=== PATIENT | male | born 1950 | race Caucasian/White ===

== ENCOUNTER 2016-10-22 14:06 | Emergency (ER) | payer OTHER ==
[~2016-10-22] VITALS: Ht 180.3 cm; Wt 75.0 kg
[~2016-10-22 14:06] MED LIST: CLON1 PO; LEVA750T PO; OMEP20TA PO; PERC10TA27 PO; VITA100T2 PO; WALKER WHEELS/F1 MIS
[2016-10-22 14:08] VITALS: BP 136/78; PULSE 94; RESP 20; TEMP 99.7; O2SAT 98
--- NOTE | 2016-10-22 14:44 | RADRPT ---
EXAM DATE/TIME: 10/22/2016 14:25 [facility] COMPARISON: CHEST SINGLE AP, January 24, 2016, 16:09. INDICATIONS : Congestion, short of breath, wheezing. MEDICAL HISTORY : Chronic obstructive pulmonary disease. SURGICAL HISTORY : None. ENCOUNTER: Initial ACUITY: 1 day PAIN SCORE: 0/10 LOCATION: Bilateral chest FINDINGS: A single view of the chest demonstrates the lungs to be symmetrically aerated without evidence of mas s, infiltrate or effusion. The cardiomediastinal contours are unremarkable. Osseous structures are intact. Marked osteoarthritis of the humeral heads CONCLUSION: Continued hyperexpansion without evidence of infiltrate or mass. Lisandro Alba MD on October 22, 2016 at 14:42 Board Certified Radiologist. This report was verified electronically.
[2016-10-22] MEDS ORDERED: VENTAER INH (15:33)
[2016-10-22] MEDS ORDERED: ZITHTAB PO (15:33)
--- NOTE | 2016-10-22 15:35 | PD ---
HPI Chief Complaint: Cold / Flu Symptoms Time Seen by Provider: 15:27 Travel History International Travel<30 days: No Contact w/Intl Traveler<30days: No Traveled to known affect area: No History of Present Illness HPI Patient comes in complaining of a productive cough ongoing for a week. Patient states he's coughing up yellowish phlegm. Reports subjective fevers. Denies any nausea, vomiting, back pain, chest pain, abdominal pain, headaches, or loss or change in bowel or bladder. Patient continues smoking. Patient denies doing anything for this. Denies anything making it better or worse. Patient also requesting a refill of his Klonopin. States he tried to go to his primary care doctor's office today but they were closed. PFSH Past Medical History Hx Anticoagulant Therapy: No Arthritis: Yes Asthma: No Blood Disorders: No Anxiety: Yes (PANIC ATTACKS) Depression: Yes Heart Rhythm Problems: No Cancer: No Cardiovascular Problems: No High Cholesterol: No Chemotherapy: No Chest Pain: Yes Congestive Heart Failure: No COPD: No Cerebrovascular Accident: No Diabetes: No Diminished Hearing: No Endocrine: No Gastrointestinal Disorders: Yes GERD: Yes Genitourinary: Yes (HESITANCY) Headaches: Yes Hypertension: Yes Immune Disorder: No Implanted Vascular Access Dvce: Yes Musculoskeletal: Yes Neurologic: Yes Psychiatric: Yes Reproductive: No Respiratory: Yes (CURRENT PNEUMONIA) Immunizations Current: No Migraines: Yes Pneumonia: Yes Radiation Therapy: No Sleep Apnea: No Thyroid Disease: No Past Surgical History Abdominal Surgery: No AICD: No Appendectomy: No Arteriovenous Shunt: No Cardiac Surgery: No Cholecystectomy: No Ear Surgery: No Endocrine Surgery: No Eye Surgery: Yes (LEFT EYE SURGERY) Genitourinary Surgery: No Gynecologic Surgery: No Hysterectomy: No Joint Replacement: Yes (RIGHT HAND METAL HARDWARE) Oral Surgery: No Thoracic Surgery: No Other Surgery: Yes Social History Alcohol Use: Yes (VODKA, 4 LOCOS) Tobacco Use: Yes (1 PPD) Substance Use: No Allergies-Medications (Allergen,Severity, Reaction): Coded Allergies: ketorolac (Unverified Adverse Reaction, Severe, UPSET STOMACH/ITCH, ) tramadol (Unverified Adverse Reaction, Severe, UPSET STOMACH/ITCH, 09/22/16 ) Reported Meds & Prescriptions Reported Meds & Active Scripts Active Zithromax Z-Hermes (Azithromycin) 250 Mg Dspk 250 Mg PO DIRECTED 500 MG (2 tabs) day 1, then 1 tab days 2-5. Ventolin Hfa 18 GM Inh (Albuterol Sulfate) 90 Mcg/Act Aer 2 Puff INH Q4-6H PRN Reported Klonopin (Clonazepam) 1 Mg Tab 1 Mg PO BID Review of Systems Except as stated in HPI: all other systems reviewed are Neg Physical Exam Narrative GENERAL: Well-developed, well nourished, in no acute distress, and non-ill appearing. SKIN: Focused skin assessment warm and dry. HEAD: Atraumatic. Normocephalic. EYES: Pupils equal and round. EOMI. No scleral icterus. No injection or drainage. ENT: No nasal bleeding or discharge. Mucous membranes pink and moist. NECK: Trachea midline. Supple. No nuclear rigidity. CARDIOVASCULAR: Regular rate and rhythm. No murmur appreciated. RESPIRATORY: No accessory muscle use. No respiratory distress. Decreased breath sounds throughout. Breath sounds equal bilaterally. MUSCULOSKELETAL: No obvious deformities. No clubbing. No cyanosis. No edema. Full range of motion. NEUROLOGICAL: Awake and alert. No obvious cranial nerve deficits. Motor grossly within normal limits. Normal speech. PSYCHIATRIC: Appropriate mood and affect; insight and judgment normal. Data Data Last Documented VS Vital Signs Date Time Temp Pulse Resp B/P (MAP) Pulse Ox O2 Delivery O2 Flow Rate FiO2 10/22/16 15:39 10/22/16 14:08 99.7 94 20 98 Room Air Orders Orders Chest, Single Ap (10/22/16 14:12) [facility] Medical Decision Making Medical Screen Exam Complete: Yes Emergency Medical Condition: Yes Interpretation(s) Chest x-ray read by the radiologist shows: Continued hyperexpansion without evidence of infiltrate or mass. Differential Diagnosis Pneumonia, bronchitis, COPD exacerbation, pneumothorax, other Narrative Course Patients symptom complex is consistent with bronchitis. The patient is non-ill appearing and is in no respiratory distress and comfortable. The patient moves air well and oxygen saturations are normal. Chest x-ray revealed no evidence of obvious consolidation of infiltrate. There is no clinical evidence to suggest pneumonia at this time. Plan of care and management were discussed with the patient who agreed with plan. The patient was instructed to follow up with their physician and instructed to return if worsens, progressively worsening shortness of breath or difficulty breathing, persistent fever, chest pains or discomfort, inability to keep medication or fluids down with or without vomiting , or as needed. Patient in no obvious distress upon re-evaluation. All pertinent Radiology result(s) discussed with patient. Patient was asked if they wanted to speak to my attending, which the patient did not wish to do at this time. Any questions/ concerns in reference to patient diagnosis/condition discussed and clarified prior to patient's discharge. Reinforced sheer importance of close follow up with patient's primary physician or primary care clinic for reevaluation and refill of his Klonopin. Instructed patient to return to ED immediately, if symptoms return/worsen. Pt showed understanding of above instructions. Further instructions and recommendations were detailed in discharge paperwork. Pt ambulated without difficulty out of ED at discharge. Diagnosis Primary Impression: Bronchitis Patient Instructions: Acute Bronchitis (ED), General Instructions Additional Instructions: Follow-up with your primary care physician next week for reevaluation. Take all medication as prescribed. Return to the emergency department if symptoms get worse. Med/Other Pt SpecificInfo: Prescription(s) given Scripts Azithromycin (Zithromax Z-Hermes) 250 Mg Dspk 250 MG PO DIRECTED for Infection, #1 DSPK 0 Refills 500 MG (2 tabs) day 1, then 1 tab days 2-5. Prov: Noah León MD 10/22/16 Albuterol 18 GM Inh (Ventolin Hfa 18 GM Inh) 90 Mcg/Act Aer 2 PUFF INH Q4-6H Y for COUGH, #1 INHALER 0 Refills Prov: Noah León MD 10/22/16 Disposition: 01 DISCHARGE HOME Condition: Stable Eugenio Holland Oct 22, 2016 15:35
== END 2016-10-22 15:57 | disposition home or self-care (01) ==
LOC: EDTENT 14:06
DX: J40 Bronchitis, not specified as acute or chronic (principal); I10 Essential (primary) hypertension; F17.210 Nicotine dependence, cigarettes, uncomplicated
CPT/HCPCS: 71010; 99284

== ENCOUNTER 2016-10-24 16:59 | Emergency (ER) | payer OTHER ==
[~2016-10-24] VITALS: Ht 180.3 cm; Wt 68.0 kg
[~2016-10-24 16:59] MED LIST changes: -LEVA750T PO; -OMEP20TA PO; -PERC10TA27 PO; +VENTAER INH; -VITA100T2 PO; -WALKER WHEELS/F1 MIS; +ZITHTAB PO
[2016-10-24 17:08] VITALS: BP 121/80; PULSE 90; RESP 16; TEMP 98.4; O2SAT 97
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
[2016-10-24] MEDS: ACETAMINOPHEN 325 MG TAB PO ONE ×2 (17:57→18:00)
[2016-10-24] MEDS ORDERED: TETANUS/DIPHTHERIA TOXOID ADULT 0.5 ML VIAL IM ONE (18:00)
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
[2016-10-24 18:46] VITALS: BP 118/81; PULSE 80; RESP 20; O2SAT 99
[2016-10-24] MEDS ORDERED: AMOX875T PO (19:01)
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
== END 2016-10-24 19:24 | disposition home or self-care (01) ==
LOC: NEPC 16:59
DX: S01.511A Laceration without foreign body of lip, initial encounter (principal); M54.2 Cervicalgia; R51 Headache; R11.2 Nausea with vomiting, unspecified; I10 Essential (primary) hypertension; F17.210 Nicotine dependence, cigarettes, uncomplicated; Z23 Encounter for immunization; W20.8XXA Other cause of strike by thrown, projected or falling object, initial encounter; Y09 Assault by unspecified means; Y92.830 Public park as the place of occurrence of the external cause; Y99.8 Other external cause status
CPT/HCPCS: 12011; 70450; 70486; 72125; 90471; 90714

== ENCOUNTER 2017-02-04 08:24 | Emergency (ER) | payer OTHER ==
[~2017-02-04] VITALS: Ht 180.3 cm; Wt 77.0 kg
[~2017-02-04 08:24] MED LIST changes: +AMOX875T PO; -VENTAER INH; -ZITHTAB PO
[2017-02-04 08:26] VITALS: BP 130/84; PULSE 97; RESP 20; TEMP 98; O2SAT 99
[2017-02-04] MEDS ORDERED: SODIUM CHLORIDE 0.9% FLUSH 10 ML FLUSH IVF PRN (08:45)
--- NOTE | 2017-02-04 08:47 | PD ---
HPI Chief Complaint: Pain: Acute or Chronic Time Seen by Provider: 08:35 Travel History International Travel<30 days: No Contact w/Intl Traveler<30days: No Traveled to known affect area: No History of Present Illness HPI 66-year-old male states he tripped and fell 10 days ago and feels like he broke a rib on his right chest area. He states he did not see a physician for this. He states additionally over the past couple days he's been having cough and congestion and worries he has an infection. He states that today he woke up and his right hand was hurting and hurt when he moved it but is not having difficulty moving it. He states he doesn't think he hit it when he fell but the pain just started this morning. Quality pain is sharp. Severity is moderate. Pain is worse with movement. He denies other modifying factors. He states he follows with his primary regularly. PFSH Past Medical History Hx Anticoagulant Therapy: No Arthritis: Yes Asthma: No Blood Disorders: No Anxiety: Yes (PANIC ATTACKS) Depression: Yes Heart Rhythm Problems: No Cancer: No Cardiovascular Problems: No High Cholesterol: No Chemotherapy: No Chest Pain: Yes Congestive Heart Failure: No COPD: No Cerebrovascular Accident: No Diabetes: No Diminished Hearing: No Endocrine: No Gastrointestinal Disorders: Yes GERD: Yes Genitourinary: Yes (HESITANCY) Headaches: Yes Hypertension: Yes Immune Disorder: No Implanted Vascular Access Dvce: Yes Musculoskeletal: Yes Neurologic: Yes Psychiatric: Yes Reproductive: No Respiratory: Yes (CURRENT PNEUMONIA) Immunizations Current: No Migraines: Yes Pneumonia: Yes Radiation Therapy: No Sleep Apnea: No Thyroid Disease: No Past Surgical History Abdominal Surgery: No AICD: No Appendectomy: No Arteriovenous Shunt: No Cardiac Surgery: No Cholecystectomy: No Ear Surgery: No Endocrine Surgery: No Eye Surgery: Yes (LEFT EYE SURGERY) Genitourinary Surgery: No Gynecologic Surgery: No Hysterectomy: No Joint Replacement: Yes (RIGHT HAND METAL HARDWARE) Oral Surgery: No Thoracic Surgery: No Other Surgery: Yes Social History Alcohol Use: Yes (VODKA, 4 LOCOS OCC) Tobacco Use: Yes (1 PPD) Substance Use: No Allergies-Medications (Allergen,Severity, Reaction): Coded Allergies: ketorolac (Unverified Adverse Reaction, Severe, UPSET STOMACH/ITCH, ) tramadol (Unverified Adverse Reaction, Severe, UPSET STOMACH/ITCH, ) Reported Meds & Prescriptions Reported Meds & Active Scripts Active Amoxicillin 875 Mg Tab 875 Mg PO BID 7 Days Reported Klonopin (Clonazepam) 1 Mg Tab 1 Mg PO BID Review of Systems Except as stated in HPI: all other systems reviewed are Neg Physical Exam Narrative GENERAL: Well-nourished, well-developed patient. SKIN: Warm and dry. HEAD: Normocephalic and atraumatic. EYES: No injection or drainage. ENT: No nasal drainage noted. NECK: Supple, trachea midline. CARDIOVASCULAR: Regular rate and rhythm . Chest wall: Tender to right mid lateral chest wall RESPIRATORY: Decreased aeration bilaterally. No accessory muscle use. GASTROINTESTINAL: Abdomen soft, non-tender, nondistended. EXTREMITIES: Pain with palpation of right hand and wrist with mild associated swelling, no pain with other joints , neurovascularly intact, no lacerations over, compartments soft. BACK: Nontender without obvious deformity. NEUROLOGICAL: Awake and alert. Motor and sensory grossly within normal limits. Normal speech. Data Data Last Documented VS Vital Signs Date Time Temp Pulse Resp B/P (MAP) Pulse Ox O2 Delivery O2 Flow Rate FiO2 02/04/17 09:17 93 24 112/81 (91) 100 Aerosol Mask 02/04/17 08:26 98.0 Orders Orders Complete Blood Count With Diff (02/04/17 08:39) Basic Metabolic Panel (Bmp) (02/04/17 08:39) Magnesium (Mg) (02/04/17 08:39) Influenzae A/B Antigen (02/04/17 08:39) Iv Access Insert/Monitor (02/04/17 08:39) Ecg Monitoring (02/04/17 08:39) Oximetry (02/04/17 08:39) Chest, Pa & Lat (02/04/17 08:39) Sodium Chloride 0.9% Flush (Ns Flush) (02/04/17 08:45) Albuterol-Ipratropium Neb (Duoneb Neb) (02/04/17 08:45) Hand, Complete ([id number]) (02/04/17 ) Wrist, Complete ([id number]) (02/04/17 ) Splint Or Brace Apply/Monitor (02/04/17 09:54) Methylprednisolone So Succ Inj (Solumedr (02/04/17 10:00) Albuterol-Ipratropium Neb (Duoneb Neb) (02/04/17 10:00) Acetaminophen (Tylenol) (02/04/17 11:15) Ed Discharge Order (02/04/17 11:18) Labs Laboratory Tests Test 02/04/17 09:10 White Blood Count 14.5 TH/MM3 Red Blood Count 5.13 MIL/MM3 Hemoglobin 16.5 GM/DL Hematocrit 48.5 % Mean Corpuscular Volume 94.5 FL Mean Corpuscular Hemoglobin 32.1 PG Mean Corpuscular Hemoglobin Concent 33.9 % Red Cell Distribution Width 13.3 % Platelet Count 217 TH/MM3 Mean Platelet Volume 7.1 FL Neutrophils (%) (Auto) 83.9 % Lymphocytes (%) (Auto) 8.6 % Monocytes (%) (Auto) 6.6 % Eosinophils (%) (Auto) 0.1 % Basophils (%) (Auto) 0.8 % Neutrophils # (Auto) 12.1 TH/MM3 Lymphocytes # (Auto) 1.2 TH/MM3 Monocytes # (Auto) 1.0 TH/MM3 Eosinophils # (Auto) 0.0 TH/MM3 Basophils # (Auto) 0.1 TH/MM3 CBC Comment DIFF FINAL Differential Comment Blood Urea Nitrogen 11 MG/DL Creatinine 0.76 MG/DL Random Glucose 77 MG/DL Calcium Level 8.8 MG/DL Magnesium Level 2.2 MG/DL Sodium Level 133 MEQ/L Potassium Level 4.8 MEQ/L Chloride Level 100 MEQ/L Carbon Dioxide Level 24.6 MEQ/L Anion Gap 8 MEQ/L Estimat Glomerular Filtration Rate 103 ML/MIN [facility] Medical Decision Making Medical Screen Exam Complete: Yes Emergency Medical Condition: Yes Medical Record Reviewed: Yes (past history confirmed) Interpretation(s) CBC & BMP Diagram 02/04/17 09:10 Calcium Level 8.8, Magnesium Level 2.2 Last 24 hours Impressions Chest X-Ray 02/04/17 0839 Signed Impressions: Service Date/Time: January 08:48 - CONCLUSION: 1. No acute abnormality or significant interval change. Nito Amador MD Wrist X-Ray 02/04/17 0000 Signed Impressions: Service Date/Time: January 08:52 - CONCLUSION: 1. Prior internal fixation of the distal fifth metacarpal. No evidence for hardware failure. 2. Very subtle cortical buckling of the scaphoid waist without a definitive lucency. This is likely to old trauma. Consider bracing with repeat examination if patient has significant snuffbox tenderness or appropriate history. 3. 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 Nito Amador MD Hand X-Ray 02/04/17 0000 Signed Impressions: Service Date/Time: January 08:54 - CONCLUSION: 1. Internal fixation of the distal fifth metacarpal. Hardware is intact without evidence for failure. 2. Healed fractures of the distal second to fourth proximal phalanges. 3. Subtle buckling of the scaphoid waist is likely chronic in etiology. 4. 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 Nito Amador MD Differential Diagnosis Fracture, pneumonia, URI, COPD Narrative Course Will check blood work, chest x-ray, right hand x-ray, influenza and dose with DuoNeb's and reevaluate given right wrist xray, will place in thumb spica splint and have follow with hand surgeon. Patient updated about this. Patient still with decreased aeration. Will dose with additional DuoNeb and Solu-Medrol and reevaluate On recheck clear to auscultation bilaterally. We'll provide with albuterol inhaler and prednisone. There is no signs of large rib fracture or pneumonia. Influenza is negative. Basic blood work is without emergent findings. Vitals are stable.Patient denies any new complaints, all questions answered. Patient knows that follow up is incumbent on them and to return to the emergency room immediately if new or worsening symptoms develop. Patient given strict return precautions, vitals reviewed and are normal, agrees to further workup as an outpatient. Diagnosis Primary Impression: Reactive airway disease Qualified Codes: J45.901 - Unspecified asthma with (acute) exacerbation Additional Impressions: Upper respiratory infection Qualified Codes: J06.9 - Acute upper respiratory infection, unspecified Hand pain, right Patient Instructions: General Instructions Additional Instructions: return as needed, tylenol as needed, follow with primary this week, set up hand surgeon for 1 week follow up Med/Other Pt SpecificInfo: Prescription(s) given Scripts Albuterol 18 GM Inh (Ventolin Hfa 18 GM Inh) 90 Mcg/Act Aer 2 PUFF INH Q4H Y for SHORTNESS OF BREATH, #1 INHALER 0 Refills Prov: Mercy Alfaro MD 02/04/17 Prednisone (Prednisone) 50 Mg Tab 50 MG PO DAILY for 5 Days, #5 TAB 0 Refills Prov: Mercy Alfaro MD 02/04/17 Disposition: 01 DISCHARGE HOME Condition: Stable Mercy Alfaro MD Feb 04, 2017 08:47
[2017-02-04] MEDS: RESP: ALBUTEROL 2.5 MG/IPRATROPIUM 0.5 MG NEB (SCH) INH (09:01)
[2017-02-04 09:17] VITALS: BP 112/81; PULSE 93; RESP 24; O2SAT 100
--- NOTE | 2017-02-04 09:21 | RADRPT ---
EXAM DATE/TIME: 02/04/2017 08:48 [facility] COMPARISON: CHEST SINGLE AP, October 22, 2016, 14:25. INDICATIONS : Fell 10 days ago, pain anterior chest, short of breath, congestion MEDICAL HISTORY : Chronic obstructive pulmonary disease. Hypertension SURGICAL HISTORY : right hand ENCOUNTER: Initial ACUITY: 1 week PAIN SCORE: 8/10 LOCATION: Bilateral chest FINDINGS: No new focal pleural or brachial opacities. Persistent mild diffuse interstitial prominence and hyper expansion. Cardiomediastinal contours are within normal limits. Bony thorax is intact. CONCLUSION: 1. No acute abnormality or significant interval change. Nito Amador MD on February 04, 2017 at 9:17 Board Certified Radiologist. This report was verified electronically.
--- NOTE | 2017-02-04 09:35 | RADRPT ---
EXAM DATE/TIME: 02/04/2017 08:52 [facility] COMPARISON: HAND RIGHT COMPLETE ([id number]), February 04, 2017, 8:54. INDICATIONS : Fell 10 days ago but denies injury to hand at that time. Awoke this morning with pain in the entire r ight hand and wrist, some swelling and discoloration, pain is most severe on the medial side MEDICAL HISTORY : Chronic obstructive pulmonary disease. Hypertension fracture right 5th metacarpal SURGICAL HISTORY : right 5th metacarpal ENCOUNTER: Initial ACUITY: 1 day PAIN SCORE: 10/10 LOCATION: Right wrist FINDINGS: Plate and screw fixation of the fifth distal metacarpal. Hardware appears intact and well-positioned. No vanesa-hardware lucency. There is very subtle cortical buckling of the scaphoid waist without a def initive lucency. Remaining osseous structures appear intact. There are advanced degenerative changes noted at the first carpometacarpal joint. Remaining joint spaces are largely maintained. No significa nt soft tissue abnormality. CONCLUSION: 1. Prior internal fixation of the distal fifth metacarpal. No evidence for hardware failure. 2. Very subtle cortical buckling of the scaphoid waist without a definitive lucency. This is likely t o old trauma. Consider bracing with repeat examination if patient has significant snuffbox tenderness or appropriate history. 3. 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 Nito Amador MD on February 04, 2017 at 9:20 Board Certified Radiologist. This report was verified electronically.
--- NOTE | 2017-02-04 09:40 | RADRPT ---
EXAM DATE/TIME: 02/04/2017 08:54 [facility] COMPARISON: No previous studies available for comparison. INDICATIONS : Fell 10 days ago but denies injury to hand at that time. Awoke this morning with pa in in the entire right hand and wrist, some swelling and discoloration MEDICAL HISTORY : Chronic obstructive pulmonary disease. Hypertension fracture 5th metacarpa l right hand SURGICAL HISTORY : right 5th metacarpal ENCOUNTER: Initial ACUITY: 1 day PAIN SCORE: 10/10 LOCATION: Right FINDINGS: 3 views of the right hand demonstrate a postsurgical features of prior plate and screw fixation of di stal fifth metacarpal with associated bony remodeling. Bony remodeling is noted in the distal second to fourth proximal phalanges. There is again some buckling noted near the scaphoid waist without luce ncy. There is advanced degenerative change about the first carpal metacarpal joint. Remaining joint s paces are grossly maintained. No significant soft tissue abnormality. CONCLUSION: 1. Internal fixation of the distal fifth metacarpal. Hardware is intact without evidence for failure. 2. Healed fractures of the distal second to fourth proximal phalanges. 3. Subtle buckling of the scaphoid waist is likely chronic in etiology. 4. 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 Nito Amador MD on February 04, 2017 at 9:33 Board Certified Radiologist. This report was verified electronically.
[2017-02-04 09:43] LABS: AUTOMATED NEUTROPHIL # 12.1 TH/MM3 (1.8-7.7); BASOPHIL # 0.1 TH/MM3 (0-0.2); BASOPHIL % 0.8 % (0.0-2.0); EOSINOPHIL % 0.1 % (0.0-4.0); HEMATOCRIT 48.5 % (39.0-51.0); HEMOGLOBIN 16.5 GM/DL (13.0-17.0); LYMPH % 8.6 % (9.0-44.0); LYMPHOCYTE # 1.2 TH/MM3 (1.0-4.8); MEAN CELL VOLUME 94.5 FL (80.0-100.0); MEAN CORPUSCULAR HEMOGLOBIN 32.1 PG (27.0-34.0); MEAN CORPUSCULAR HGB CONC 33.9 % (32.0-36.0); MEAN PLATELET VOLUME 7.1 FL (7.0-11.0); MONO % 6.6 % (0.0-8.0); NEUT % 83.9 % (16.0-70.0); PLATELET COUNT 217 TH/MM3 (150-450); RED BLOOD COUNT 5.13 MIL/MM3 (4.50-5.90); RED CELL DISTRIBUTION WIDTH 13.3 % (11.6-17.2); WHITE BLOOD COUNT 14.5 TH/MM3 (4.0-11.0)
[2017-02-04 09:48] LABS: BICARBONATE 24.6 MEQ/L (21.0-32.0); CALCIUM 8.8 MG/DL (8.5-10.1); CREATININE 0.76 MG/DL (0.60-1.30); MAGNESIUM 2.2 MG/DL (1.5-2.5)
[2017-02-04] MEDS ORDERED: RESP: ALBUTEROL 2.5 MG/IPRATROPIUM 0.5 MG NEB (SCH) INH ONE (10:00)
[2017-02-04] MEDS ORDERED: methylPREDNISolone SOD SUCC 125 MG/2 ML VIAL IV PUSH ONE (10:00)
[2017-02-04] MEDS ORDERED: ACETAMINOPHEN 325 MG TAB PO ONE (11:15)
[2017-02-04] MEDS ORDERED: PRED50 PO (11:22)
[2017-02-04] MEDS ORDERED: VENTAER INH (11:23)
== END 2017-02-04 12:06 | disposition home or self-care (01) ==
LOC: NEPE 08:24
DX: J45.901 Unspecified asthma with (acute) exacerbation (principal); J06.9 Acute upper respiratory infection, unspecified; M79.641 Pain in right hand; F17.200 Nicotine dependence, unspecified, uncomplicated; Z79.899 Other long term (current) drug therapy
CPT/HCPCS: 71020; 73110; 73130; 80048; 83735; 85025; 87804; 94640; 94664; 96374; 99285; J2930; L3808

== ENCOUNTER 2017-03-12 20:46 | Emergency (ER) | payer OTHER ==
[~2017-03-12] VITALS: Ht 177.8 cm; Wt 77.0 kg
[~2017-03-12 20:46] MED LIST changes: +PRED50 PO; +VENTAER INH
[2017-03-12 21:09] VITALS: BP 125/76; PULSE 80; RESP 16; TEMP 98.3; O2SAT 100
--- NOTE | 2017-03-12 22:02 | RADRPT ---
EXAM DATE/TIME: 03/12/2017 21:18 [facility] COMPARISON: CHEST SINGLE AP, October 22, 2016, 14:25. INDICATIONS : Chest pain. MEDICAL HISTORY : Chronic obstructive pulmonary disease. Hypertension SURGICAL HISTORY : None. ENCOUNTER: Initial ACUITY: 3 days PAIN SCORE: 8/10 LOCATION: chest FINDINGS: Old healed fractures of the rib cage are noted bilaterally. The heart is normal. The pulmonary vascul ar pattern is normal. The lungs are clear. Degenerative changes are noted involving the shoulders missael aterally. CONCLUSION: No acute cardiopulmonary disease. Mike Orozco MD on March 12, 2017 at 21:58 Board Certified Radiologist. This report was verified electronically.
--- NOTE | 2017-03-13 00:01 | PD ---
HPI Chief Complaint: Pain: Acute or Chronic Time Seen by Provider: 23:29 Travel History International Travel<30 days: No Contact w/Intl Traveler<30days: No Traveled to known affect area: No History of Present Illness HPI 66-year-old white male presents to emergency department by EMS. The patient states that he is currently homeless. He has been staying at friend's houses. He does admit to a history of alcohol abuse. He states that he feels that he may have broken ribs a few weeks ago. He states that he is having some chest wall pain and shortness of breath. He continues to drink alcohol smoke cigarettes. He denies any exertional anginal type pain. He states the pain is worse when he takes a deep breath or moves. He denies any abdominal pain. No nausea vomiting. No diaphoresis. Symptoms are mild. Symptoms improved with rest. PFSH Past Medical History Hx Anticoagulant Therapy: No Arthritis: Yes Asthma: No Blood Disorders: No Anxiety: Yes (PANIC ATTACKS) Depression: Yes Heart Rhythm Problems: No Cancer: No Cardiovascular Problems: No High Cholesterol: No Chemotherapy: No Chest Pain: Yes Congestive Heart Failure: No COPD: No Cerebrovascular Accident: No Diabetes: No Diminished Hearing: No Endocrine: No Gastrointestinal Disorders: Yes GERD: Yes Genitourinary: Yes (HESITANCY) Headaches: Yes Hypertension: Yes Immune Disorder: No Implanted Vascular Access Dvce: Yes Musculoskeletal: Yes Neurologic: Yes Psychiatric: Yes Reproductive: No Respiratory: Yes Immunizations Current: No Migraines: Yes Pneumonia: Yes Radiation Therapy: No Sleep Apnea: No Thyroid Disease: No Past Surgical History Abdominal Surgery: No AICD: No Appendectomy: No Arteriovenous Shunt: No Cardiac Surgery: No Cholecystectomy: No Ear Surgery: No Endocrine Surgery: No Eye Surgery: Yes (LEFT EYE SURGERY) Genitourinary Surgery: No Gynecologic Surgery: No Hysterectomy: No Joint Replacement: Yes (RIGHT HAND METAL HARDWARE) Oral Surgery: No Thoracic Surgery: No Other Surgery: Yes Social History Alcohol Use: Yes (VODKA, 4 LOCOS OCC) Tobacco Use: Yes (1 PPD) Substance Use: No Allergies-Medications (Allergen,Severity, Reaction): Coded Allergies: ketorolac (Unverified Adverse Reaction, Severe, UPSET STOMACH/ITCH, ) tramadol (Unverified Adverse Reaction, Severe, UPSET STOMACH/ITCH, ) Reported Meds & Prescriptions Reported Meds & Active Scripts Active Ventolin Hfa 18 GM Inh (Albuterol Sulfate) 90 Mcg/Act Aer 2 Puff INH Q4H PRN Prednisone 50 Mg Tab 50 Mg PO DAILY 5 Days Amoxicillin 875 Mg Tab 875 Mg PO BID 7 Days Reported Klonopin (Clonazepam) 1 Mg Tab 1 Mg PO BID Review of Systems General / Constitutional: No: Fever Eyes: No: Visual changes HENT: No: Headaches Cardiovascular: Positive: Chest Pain or Discomfort Respiratory: Positive: Cough, Pleuritic Pain, No: Shortness of Breath, Wheezing Gastrointestinal: No: Nausea, Vomiting, Diarrhea, Abdominal Pain Genitourinary: No: Dysuria Musculoskeletal: No: Pain Skin: No Rash Neurologic: No: Weakness Psychiatric: No: Depression Endocrine: No: Polydipsia Hematologic/Lymphatic: No: Easy Bruising Physical Exam Narrative GENERAL: Well-developed, well-nourished in no apparent distress. Nontoxic appearing. Patient is resting comfortable in the examination room and sleeping. He is aroused for the history and exam. HEAD: Normocephalic, atraumatic. EYES: Right thigh appears normal. The left eye has a prosthesis. ENT: Nose clear. Throat without erythema, tonsillar hypertrophy or exudate. Uvula midline. Airway patent. NECK: Trachea midline. Supple, nontender, moves head freely. No central bony tenderness or spasm. CARDIOVASCULAR: Regular rate and rhythm without murmurs, gallops, or rubs. RESPIRATORY: Clear to auscultation. Breath sounds equal bilaterally. No wheezes , rales, or rhonchi. CHEST: Mild anterior chest wall pain without deformity or crepitance. No retractions or use of accessory muscles. GASTROINTESTINAL: Abdomen soft, non-tender, nondistended. No hepato-splenomegaly , or palpable masses. No guarding. EXTREMITIES: No clubbing, cyanosis, or edema. No joint tenderness. BACK: Nontender without deformity. No flank tenderness. NEUROLOGICAL: Awake, alert and oriented x 3 .Cranial nerves grossly intact. Motor and sensory grossly within normal limits. Normal speech. Data Data Last Documented VS Vital Signs Date Time Temp Pulse Resp B/P (MAP) Pulse Ox O2 Delivery O2 Flow Rate FiO2 03/12/17 21:09 98.3 80 16 125/76 (92) 100 Orders Orders Chest, Single Ap (03/12/17 ) Electrocardiogram (03/12/17 ) Ed Discharge Order (03/12/17 23:53) [facility] Medical Decision Making Medical Screen Exam Complete: Yes Emergency Medical Condition: Yes Medical Record Reviewed: Yes Interpretation(s) Last 24 hours Impressions Chest X-Ray 03/12/17 0000 Signed Impressions: Service Date/Time: Sunday, March 12, 2017 21:18 - CONCLUSION: No acute cardiopulmonary disease. Mike Orozco MD EKG shows NSR, no ST elevation or depression, and no arrhythmias. No significant T-wave inversions. Differential Diagnosis Differential diagnoses: Rib fracture, pneumonia, pneumothorax, chest wall pain, malingering Narrative Course The patient's exam shows only mild soft tissue anterior chest wall pain. His EKG shows no acute ST-T wave changes. Chest x-ray is clear without obvious pleuritic process or rib fracture. The patient is medically cleared. The patient when informed his exam was unremarkable and he was going to be discharged. The patient then states that he would like to get help with his alcohol abuse and would like to go to [facility]. Patient is given outpatient treatment information and advised to call [facility]. This is chest wall pain, alcohol abuse Diagnosis Primary Impression: chest wall pain Additional Impression: alcohol abuse Patient Instructions: General Instructions Additional Instructions: Rest. Increase fluids. Avoid alcohol. 3 Advil every 8 hours as needed for pain. Avoid illegal substances. Follow-up with [facility] for detox. Do not operate a car or any heavy machinery under the influence of alcohol or drugs. Follow-up with a medical doctor this week. Return to the ER for emergencies Med/Other Pt SpecificInfo: No Meds Exist/No RX given Disposition: 01 DISCHARGE HOME Condition: Stable Inocente Cain Mar 13, 2017 00:01
[2017-03-13 00:58] VITALS: BP 135/76
--- NOTE | 2017-03-13 15:29 | EKG ---
Date Performed: 03/12/2017 Time Performed: 21:13:48 PTAGE: 66 years EKG: Sinus rhythm LEFT ANTERIOR FASCICULAR BLOCK ABNORMAL ECG Since PREVIOUS TRACING , no significant change noted PREVIOUS TRACIN10/09/2014 20.58 DOCTOR: Jose Armando aVrghese Interpretating Date/Time 03/13/2017 15:28:45
== END 2017-03-13 01:00 | disposition home or self-care (01) ==
LOC: NEDAMB 20:46
DX: R07.89 Other chest pain (principal); F10.10 Alcohol abuse, uncomplicated; R94.31 Abnormal electrocardiogram [ECG] [EKG]; F32.9 Major depressive disorder, single episode, unspecified; J44.9 Chronic obstructive pulmonary disease, unspecified; I10 Essential (primary) hypertension; F17.210 Nicotine dependence, cigarettes, uncomplicated; Z59.0 Homelessness
CPT/HCPCS: 71045; 93005

== ENCOUNTER 2017-04-01 13:54 | Emergency (ER) | payer OTHER ==
[~2017-04-01] VITALS: Ht 180.3 cm; Wt 75.0 kg
[2017-04-01 14:14] VITALS: BP 128/79; PULSE 86; RESP 18; TEMP 97.7; O2SAT 95
[2017-04-01 14:21] VITALS: BP 128/79; PULSE 84; RESP 18; TEMP 97.7; O2SAT 97
[2017-04-01 14:24] VITALS: BP 128/79; PULSE 84; RESP 18; TEMP 97.7; O2SAT 97
[2017-04-01] MEDS ORDERED: SODIUM CHLOR 0.9% 1000 ML INJ 1,000 ML IV ONE (14:45)
--- NOTE | 2017-04-01 15:08 | RADRPT ---
EXAM DATE/TIME: 04/01/2017 14:43 [facility] COMPARISON: CHEST PA & LAT, February 04, 2017, 8:48. CHEST SINGLE AP, March 12, 2017, 21:18. INDICATIONS : Chest pain. MEDICAL HISTORY : Chronic obstructive pulmonary disease. Hypertension fracture 5th metacarpal right hand SURGICAL HISTORY : right 5th metacarpal ENCOUNTER: Initial ACUITY: 1 day PAIN SCORE: 2/10 LOCATION: Bilateral chest FINDINGS: A single view of the chest demonstrates the lungs to be symmetrically aerated without evidence of mas s, infiltrate or effusion. No evidence of pneumothorax. The cardiomediastinal contours are unremark able. Old fracture of the lateral right 7th rib with callus formation.. CONCLUSION: The lungs are clear. No infiltrates seen. Chay Scott MD on April 01, 2017 at 15:05 Board Certified Radiologist. This report was verified electronically.
[2017-04-01 15:10] LABS: AUTOMATED NEUTROPHIL # 6.8 TH/MM3 (1.8-7.7); BASOPHIL # 0.1 TH/MM3 (0-0.2); BASOPHIL % 0.7 % (0.0-2.0); EOSINOPHIL # 0.1 TH/MM3 (0-0.4); EOSINOPHIL % 0.7 % (0.0-4.0); HEMATOCRIT 42.2 % (39.0-51.0); HEMOGLOBIN 14.4 GM/DL (13.0-17.0); LYMPH % 10.3 % (9.0-44.0); LYMPHOCYTE # 0.8 TH/MM3 (1.0-4.8); MEAN CELL VOLUME 94.9 FL (80.0-100.0); MEAN CORPUSCULAR HEMOGLOBIN 32.4 PG (27.0-34.0); MEAN CORPUSCULAR HGB CONC 34.1 % (32.0-36.0); MEAN PLATELET VOLUME 6.8 FL (7.0-11.0); MONO % 5.3 % (0.0-8.0); MONOCYTE # 0.4 TH/MM3 (0-0.9); PLATELET COUNT 185 TH/MM3 (150-450); RED BLOOD COUNT 4.45 MIL/MM3 (4.50-5.90); RED CELL DISTRIBUTION WIDTH 13.5 % (11.6-17.2); WHITE BLOOD COUNT 8.2 TH/MM3 (4.0-11.0)
[2017-04-01 15:24] LABS: ALBUMIN 3.6 GM/DL (3.4-5.0); ALT (GPT) 54 U/L (12-78); AST (GOT) 46 U/L (15-37); BICARBONATE 24.1 MEQ/L (21.0-32.0); BLOOD UREA NITROGEN 10 MG/DL (7-18); CALCIUM 7.9 MG/DL (8.5-10.1); CHLORIDE 103 MEQ/L (98-107); CREATININE 0.77 MG/DL (0.60-1.30); GLOMERULAR FILTRATION RATE 102 ML/MIN (>89); GLUCOSE,RANDOM 85 MG/DL (74-106); MAGNESIUM 2.4 MG/DL (1.5-2.5); SODIUM (NA) 135 MEQ/L (136-145)
[2017-04-01 15:27] LABS: ALKALINE PHOSPHATASE 78 U/L (45-117); TOTAL BILIRUBIN ADULT 0.2 MG/DL (0.2-1.0); TOTAL PROTEIN 7.9 GM/DL (6.4-8.2); TROPONIN I LESS THAN 0.02 NG/ML (0.02-0.05)
[2017-04-01 15:31] LABS: PROTHROMBIN TIME - PATIENT 10.3 SEC (9.8-11.6)
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
[2017-04-01 16:13] LABS: ACETAMINOPHEN LESS THAN 2.0 MCG/ML (10.0-30.0)
[2017-04-01 16:34] VITALS: BP 147/69; PULSE 79; RESP 19; O2SAT 96
[2017-04-01 20:21] VITALS: BP 135/84; PULSE 86; RESP 16; O2SAT 98
[2017-04-01] MEDS ORDERED: ONDANSETRON HCL 4 MG/2 ML VIAL IV PUSH ONE (20:30)
--- NOTE | 2017-04-01 21:06 | PD ---
Data Data Last Documented VS Vital Signs Date Time Temp Pulse Resp B/P (MAP) Pulse Ox O2 Delivery O2 Flow Rate FiO2 04/01/17 20:21 86 16 135/84 (101) 98 Room Air 04/01/17 14:24 97.7 3.00 Orders Orders Electrocardiogram (04/01/17 14:21) Complete Blood Count With Diff (04/01/17 14:21) Comprehensive Metabolic Panel (04/01/17 14:21) Ckmb (Isoenzyme) Profile (04/01/17 14:21) Troponin I (04/01/17 14:21) Prothrombin Time / Inr (Pt) (04/01/17 14:21) Act Partial Throm Time (Ptt) (04/01/17 14:21) Magnesium (Mg) (04/01/17 14:21) Chest, Single Ap (04/01/17 14:21) Iv Access Insert/Monitor (04/01/17 14:21) Ecg Monitoring (04/01/17 14:21) Oximetry (04/01/17 14:21) Drug Screen, Random Urine (04/01/17 14:21) Alcohol (Ethanol) (04/01/17 14:21) Salicylates (Aspirin) (04/01/17 14:21) Tylenol (Acetaminophen) (04/01/17 14:21) Sodium Chlor 0.9% 1000 Ml Inj (Ns 1000 M (04/01/17 14:45) ^ Straight Catheter (04/01/17 16:01) Ondansetron Inj (Zofran Inj) (04/01/17 20:30) Labs Laboratory Tests Test 04/01/17 14:59 04/01/17 16:30 White Blood Count 8.2 TH/MM3 Red Blood Count 4.45 MIL/MM3 Hemoglobin 14.4 GM/DL Hematocrit 42.2 % Mean Corpuscular Volume 94.9 FL Mean Corpuscular Hemoglobin 32.4 PG Mean Corpuscular Hemoglobin Concent 34.1 % Red Cell Distribution Width 13.5 % Platelet Count 185 TH/MM3 Mean Platelet Volume 6.8 FL Neutrophils (%) (Auto) 83.0 % Lymphocytes (%) (Auto) 10.3 % Monocytes (%) (Auto) 5.3 % Eosinophils (%) (Auto) 0.7 % Basophils (%) (Auto) 0.7 % Neutrophils # (Auto) 6.8 TH/MM3 Lymphocytes # (Auto) 0.8 TH/MM3 Monocytes # (Auto) 0.4 TH/MM3 Eosinophils # (Auto) 0.1 TH/MM3 Basophils # (Auto) 0.1 TH/MM3 CBC Comment DIFF FINAL Differential Comment Prothrombin Time 10.3 SEC Prothromb Time International Ratio 1.0 RATIO Activated Partial Thromboplast Time 20.8 SEC Blood Urea Nitrogen 10 MG/DL Creatinine 0.77 MG/DL Random Glucose 85 MG/DL Total Protein 7.9 GM/DL Albumin 3.6 GM/DL Calcium Level 7.9 MG/DL Magnesium Level 2.4 MG/DL Alkaline Phosphatase 78 U/L Aspartate Amino Transf (AST/SGOT) 46 U/L Alanine Aminotransferase (ALT/SGPT) 54 U/L Total Bilirubin 0.2 MG/DL Sodium Level 135 MEQ/L Potassium Level 3.8 MEQ/L Chloride Level 103 MEQ/L Carbon Dioxide Level 24.1 MEQ/L Anion Gap 8 MEQ/L Estimat Glomerular Filtration Rate 102 ML/MIN Total Creatine Kinase 95 U/L Troponin I LESS THAN 0.02 NG/ML Salicylates Level 4.4 MG/DL Acetaminophen Level LESS THAN 2.0 MCG/ML Ethyl Alcohol Level 120 MG/DL Urine Opiates Screen POS Urine Barbiturates Screen NEG Urine Amphetamines Screen NEG Urine Benzodiazepines Screen NEG Urine Cocaine Screen NEG Urine Cannabinoids Screen NEG MDM Medical Record Reviewed: Yes Supervised Visit with KRYSTEN: No Narrative Course CBC & BMP Diagram 04/01/17 14:59 Total Protein 7.9, Albumin 3.6, Calcium Level 7.9 L, Magnesium Level 2.4, Alkaline Phosphatase 78, Aspartate Amino Transf (AST/SGOT) 46 H, Alanine Aminotransferase (ALT/SGPT) 54, Total Bilirubin 0.2 Tn < 0.02 Tox is positive for opioids Alcohol is 120 Pt reassessed at 900pm and found resting comfortably. Pt requested Gatorade and drank it. Diagnosis Primary Impression: Alcohol abuse Additional Impression: Opioid overdose Qualified Codes: T40.2X1S - Poisoning by other opioids, accidental ( unintentional), sequela Referrals: [facility] 2 days Med/Other Pt SpecificInfo: No Change to Meds Disposition: 01 DISCHARGE HOME Condition: Stable Ashkan Buckner MD Apr 01, 2017 21:06
--- NOTE | 2017-04-02 14:44 | EKG ---
Date Performed: 04/01/2017 Time Performed: 14:16:40 PTAGE: 66 years EKG: Sinus rhythm POSSIBLE RIGHT VENTRICULAR CONDUCTION DELAY LEFT ANTERIOR FASCICULAR BLOCK ABNORMAL ECG NO PREVIOUS TRACING Since the prior tracing, there has been no significant change DOCTOR: Jennifer Mcknight Interpretating Date/Time 04/02/2017 14:39:02
== END 2017-04-01 22:00 | disposition home or self-care (01) ==
LOC: NEPE 13:54
DX: T40.2X1A Poisoning by other opioids, accidental (unintentional), initial encounter (principal); F17.200 Nicotine dependence, unspecified, uncomplicated; F10.10 Alcohol abuse, uncomplicated; R00.0 Tachycardia, unspecified; Y90.6 Blood alcohol level of 120-199 mg/100 ml
CPT/HCPCS: 71045; 80053; 80307; 82550; 83735; 84484; 85025; 85610; 85730; 93005; 96361; 96374; 99285; J2405; J7030

== ENCOUNTER 2017-09-14 15:12 | Inpatient (IN) ==
[2017-09-14] MEDS ORDERED: Diphtheria/Tetanus/Pertussis Vaccine Inj 0.5 ML Syringe IM ONE (17:10)
[2017-09-14 17:51] LABS: Prothrombin Time 9.7 sec (9.8-11.6)
[2017-09-14 17:55] LABS: Alanine Aminotransferase 68 U/L (12-78); Albumin 3.7 g/dL (3.4-5.0); Anion Gap 10 meq/L (5-15); Aspartate Aminotransferase 77 U/L (15-37); Blood Urea Nitrogen 11 mg/dL (7-18); Calcium 8.1 mg/dL (8.5-10.1); Carbon Dioxide 21.5 meq/L (21.0-32.0); Chloride 106 meq/L (98-107); Glomerular Filtration Rate Greater Than 89 mL/min (>89); Glucose,Random 79 mg/dL (74-106); Potassium 4.2 meq/L (3.5-5.1); Sodium 137 meq/L (136-145)
[2017-09-14 17:57] LABS: Alkaline Phosphatase 79 U/L (45-117); Total Protein 7.9 g/dL (6.4-8.2)
[2017-09-14 18:03] LABS: Baso # (Auto) 0.1 th/mm3 (0.0-0.2); Baso % (Auto) 0.8 % (0.0-2.0); Eos # (Auto) 0.1 th/mm3 (0.0-0.4); Eos % (Auto) 1.3 % (0.0-4.0); Hematocrit 41.9 % (39.0-51.0); Hemoglobin 14.5 gm/dL (13.0-17.0); Lymph # (Auto) 1.9 th/mm3 (1.0-4.8); Mean Corpuscular HGB Conc 34.7 % (32.0-36.0); Mean Corpuscular Hemoglobin 33.8 pg (27.0-34.0); Mean Corpuscular Volume 97.4 fL (80.0-100.0); Mono # (Auto) 0.5 th/mm3 (0.0-0.9); Neut # (Auto) 4.1 th/mm3 (1.8-7.7); Neut % (Auto) 61.9 % (16.0-70.0); Platelet Count 157 th/mm3 (150-450); Red Cell Distribution Width 13.4 % (11.6-17.2); White Blood Count 6.6 th/mm3 (4.0-11.0)
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
[2017-09-14] MEDS ORDERED: Vancomycin Inj 1 GM/200 ML PIGGYBACK IV.SIG ONE (18:31)
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
[2017-09-14] MEDS ORDERED: Morphine Sulfate Inj 2 MG/ML Vial IV.PUSH ONE (18:48)
[2017-09-14] MEDS ORDERED: Vancomycin Inj 1,000 MG in Sodium Chlor 0.9% Inj 250 ML IV.SIG ONE (19:00)
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
[2017-09-14] MEDS ORDERED: Morphine Sulfate Inj 2 MG/ML Vial IV.PUSH PRN (21:17)
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
[2017-09-14] MEDS: Sod Chloride 0.9% Inj 1,000 ML IV.CONT SCH (22:14)
[2017-09-15] MEDS ORDERED: Chlorhexidine Gluconate 2% 1 Pack (2 Cloths) TOPICAL SCH (04:00)
[2017-09-15] MEDS ORDERED: Chlorhexidine Gluconate 2% 1 Pack (2 Cloths) TOPICAL PRN (04:00)
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
[2017-09-15] MEDS ORDERED: Morphine Inj 4 MG/ML Vial IV.PUSH PRN (07:22)
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
[2017-09-15] MEDS: Sod Chloride 0.9% Inj 1,000 ML IV.CONT SCH ×2 (09:10→19:52)
[2017-09-15] MEDS: Senna/Docusate Sodium 8.6/50 MG Tablet PO SCH ×2 (09:10→20:51)
[2017-09-15] MEDS: Famotidine 20 MG Tablet PO SCH ×2 (09:10→20:51)
[2017-09-15] MEDS: Folic Acid 1 MG Tablet PO SCH (09:10)
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
--- NOTE | 2017-09-15 22:31 | ECG ---
Date Performed: 09/14/2017 Time Performed: 18:57:16 PTAGE: 66 years EKG: Sinus rhythm MARKED LEFT AXIS DEVIATION ABNORMAL ECG PREVIOUS TRACING : 04/01/2017 14.16 Since the previous tracing, no significant change noted DOCTOR: Robbin Carreno Interpretating Date/Time 09/15/2017 22:27:43
[2017-09-16] MEDS: Sod Chloride 0.9% Inj 1,000 ML IV.CONT SCH (05:25)
[2017-09-16 08:48] VITALS: O2SAT 97
[2017-09-16] MEDS: Folic Acid 1 MG Tablet PO SCH (08:49)
[2017-09-16] MEDS: Famotidine 20 MG Tablet PO SCH (08:49)
[2017-09-16] MEDS: Senna/Docusate Sodium 8.6/50 MG Tablet PO SCH (08:50)
[2017-09-16] MEDS ORDERED: SCOPOLAMINE TOPICAL ONE (11:30)
[2017-09-16 12:29] VITALS: BP 138/86; PULSE 62; RESP 16; TEMP 98.2
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
== END 2017-09-16 17:50 | disposition home or self-care (01) ==
LOC: NEPE 15:12 → NEDA 15:12 → NEPGCP 21:28
PROVIDERS: ADMIT Surgery; ATTEND Surgery